=== PATIENT | female | born 1965 | race Caucasian/White ===

== ENCOUNTER 2019-07-15 15:25 | Emergency (ER) | payer BC, OTHER ==
[~2019-07-15] VITALS: Ht 170.2 cm; Wt 96.5 kg
[~2019-07-15 15:25] MED LIST: ASCO500 PO; ASPI81CH PO; ASPI81EC PO; ATOR20 PO; ATOR40TA PO; BUPR100 PO; CARV6.25 PO; CEPH500 PO; CITA20 PO; Carvedilol12.5 MG PO; DULO60 PO; FISH1000 PO; GLUCHON PO; HUMALOG KW200 UNIT/1 SC; HYDCHL25 PO; Humalog Mi100 UNIT/4 SC; IBUP800 PO; INDO50 PO; INSDET100 SQ; INSLI100I SUBQ; INSLIS75I; INSLIS75I SC; INSULANI SC; INSULANPEN SC; IRBE150 PO; Lasix20 MG PO; METF500 PO; METFORMIN HCL500 M1 PO; METO10 PO; MULVITMIND PO; OMEP40CA12 PO; OXYACE5T PO; Omeprazole20 M1 PO; POTCHL20ER PO; SULTRIDS PO; Zofran4 MG PO
[2019-07-15 16:06] LABS: BASOPHILS ABSOLUTE AUTO 0.09 K/mm3 (0.00-0.23); BASOPHILS PERCENT AUTO 1 % (0-2); EOSINOPHILS ABSOLUTE AUTO 0.12 K/mm3 (0.00-0.68); EOSINOPHILS PERCENT AUTO 1 % (0-6); Hematocrit 38.8 % (33.0-51.0); Hemoglobin 12.5 g/dL (11.5-16.0); IMMATURE GRAN ABSOLUTE AUTO 0.11 K/mm3 (0.00-0.10); IMMATURE GRAN PERCENT AUTO 1 % (0-1); LYMPHOCYTES ABSOLUTE AUTO 3.67 K/mm3 (0.84-5.20); LYMPHOCYTES PERCENT AUTO 20 % (21-46); MONOCYTES ABSOLUTE AUTO 1.61 K/mm3 (0.16-1.47); MONOCYTES PERCENT AUTO 9 % (4-13); Mean Corpuscular HGB 29.6 pg (26.0-34.0); Mean Corpuscular HGB Conc 32.2 g/dL (31.5-36.5); Mean Corpuscular Volume 92 fL (80-100); Mean Platelet Volume 9.9 fL (9.1-12.4); NEUTROPHILS PERCENT AUTO 70 % (41-73); Platelet Count 549 K/mm3 (150-400); RDW Coefficient Variation 13.8 % (11.7-14.2); RDW Standard Deviation 46.2 fL (35.1-46.3); Red Blood Cell Count 4.23 M/mm3 (3.80-5.20)
[2019-07-15 16:17] LABS: Source, Urine Clean Catch
[2019-07-15 16:22] LABS: Alanine Aminotransfer (ALT/SGP 28 U/L (12-78); Albumin/Globulin Ratio 0.6 (0.8-1.8); Alk Phos 119 U/L (50-136); Anion Gap 4 mmol/L (6-16); Aspartate Aminotrans (AST/SGOT 42 U/L (12-37); Bilirubin, Total 0.5 mg/dL (0.1-1.0); Blood Urea Nitrogen 12 mg/dL (8-24); Bun/Creatinine Ratio 22.8 (12.0-20.0); CO2, Blood 28 mmol/L (21-32); Calcium, Blood 9.3 mg/dL (8.5-10.1); Chloride, Blood 100 mmol/L (98-108); Creatinine, Blood 0.53 mg/dL (0.40-1.00); Globulin, Blood 4.9 g/dL (2.2-4.0); Glomerular Filtration Rate >60 (60-); Glucose, Blood 244 mg/dL (70-99); Potassium, Blood 4.9 mmol/L (3.5-5.5); Sodium, Blood 132 mmol/L (136-145); Total Protein, Blood 7.9 g/dL (6.4-8.2)
[2019-07-15 16:27] LABS: Bilirubin, Urine Neg (Neg); Blood, Urine 3+ (Neg); Glucose Qualitative, Urine 3+ (Neg); Ketones, Urine Neg (Neg); Leukocyte Esterase, Urine 3+ (Neg); Nitrite, Urine Pos (Neg); Protein, Urine 2+ (Neg); Urobilinogen, Urine NORM (Normal); pH, Urine 6.5 (5.0-8.0)
[2019-07-15 16:28] LABS: Appearance, Urine Hazy (Clear); Color, Urine Yellow (P-Yellow)
[2019-07-15 16:44] LABS: Bacteria Many /hpf; Squamous Epithelial Cells Many /hpf (Few); White Blood Cells, Urine 25-50 /hpf (0-5)
[2019-07-15] MEDS ORDERED: Amoxicillin500 MG PO (20:56)
[2019-07-15] MEDS ORDERED: IBUP400 PO (20:56)
== END 2019-07-15 21:46 | disposition home or self-care (01) ==
LOC: ER 15:25
PROVIDERS: Physician Assistant
DX: M54.5 Low back pain (principal); E11.9 Type 2 diabetes mellitus without complications; F32.9 Major depressive disorder, single episode, unspecified; F41.9 Anxiety disorder, unspecified; E78.5 Hyperlipidemia, unspecified; I10 Essential (primary) hypertension; N12 Tubulo-interstitial nephritis, not specified as acute or chronic; Z87.891 Personal history of nicotine dependence; Z88.8 Allergy status to other drugs, medicaments and biological substances; Z88.5 Allergy status to narcotic agent; Z79.899 Other long term (current) drug therapy; Z79.4 Long term (current) use of insulin
CPT/HCPCS: 36415; 71046; 74177; 80053; 81001; 85025; 87077; 87086; 87186; 96374-59; 96375; 96376; 99284-25; J0696; J1170; J2405; Q9967

== ENCOUNTER → 2019-09-06 | Outpatient (CLI) | payer BC, OTHER ==
[~2019-09-06] MED LIST changes: +Amoxicillin500 MG PO; +IBUP400 PO
== END ==
LOC: EFM RAD 15:27
DX: M54.5 Low back pain (principal); M79.604 Pain in right leg; M79.605 Pain in left leg; M25.551 Pain in right hip; M47.816 Spondylosis without myelopathy or radiculopathy, lumbar region; M47.898 Other spondylosis, sacral and sacrococcygeal region; I70.8 Atherosclerosis of other arteries; M25.851 Other specified joint disorders, right hip
CPT/HCPCS: 72100; 73502

== ENCOUNTER → 2020-03-10 | Outpatient (CLI) | payer BC, OTHER ==
[2020-03-10 16:52] LABS: BASOPHILS ABSOLUTE AUTO 0.12 K/mm3 (0.00-0.23); BASOPHILS PERCENT AUTO 1 % (0-2); EOSINOPHILS ABSOLUTE AUTO 0.34 K/mm3 (0.00-0.68); EOSINOPHILS PERCENT AUTO 2 % (0-6); Hematocrit 46.5 % (33.0-51.0); Hemoglobin 15.8 g/dL (11.5-16.0); IMMATURE GRAN ABSOLUTE AUTO 0.05 K/mm3 (0.00-0.10); IMMATURE GRAN PERCENT AUTO 0 % (0-1); LYMPHOCYTES ABSOLUTE AUTO 4.65 K/mm3 (0.84-5.20); LYMPHOCYTES PERCENT AUTO 30 % (21-46); MONOCYTES ABSOLUTE AUTO 0.87 K/mm3 (0.16-1.47); MONOCYTES PERCENT AUTO 6 % (4-13); Mean Corpuscular HGB 30.6 pg (26.0-34.0); Mean Corpuscular Volume 90 fL (80-100); Mean Platelet Volume 10.9 fL (9.1-12.4); NEUTROPHILS ABSOLUTE AUTO 9.61 K/mm3 (1.96-9.15); NEUTROPHILS PERCENT AUTO 61 % (41-73); Platelet Count 485 K/mm3 (150-400); RDW Coefficient Variation 13.1 % (11.7-14.2); RDW Standard Deviation 43.8 fL (35.1-46.3); Red Blood Cell Count 5.17 M/mm3 (3.80-5.20); White Blood Cell Count 15.64 K/mm3 (4.00-11.30)
[2020-03-10 17:10] LABS: Alanine Aminotransfer (ALT/SGP 41 U/L (12-78); Albumin, Blood 4.2 g/dL (3.4-5.0); Albumin/Globulin Ratio 0.9 (0.8-1.8); Alk Phos 106 U/L (40-126); Anion Gap 12 mmol/L (6-16); Aspartate Aminotrans (AST/SGOT 17 U/L (12-37); Bilirubin, Total 0.3 mg/dL (0.1-1.0); Blood Urea Nitrogen 20 mg/dL (8-24); Bun/Creatinine Ratio 19.2 (12.0-20.0); CHOL/HDL RATIO 6.5; CO2, Blood 26 mmol/L (21-32); Calcium, Blood 9.9 mg/dL (8.5-10.1); Chloride, Blood 97 mmol/L (98-108); Cholesterol 280 mg/dL (50-200); Creatinine, Blood 1.04 mg/dL (0.40-1.00); Globulin, Blood 4.5 g/dL (2.2-4.0); Glomerular Filtration Rate 55 (60-); Glucose, Blood 322 mg/dL (70-99); HDL Cholesterol 43 mg/dL (>39); LDL/HDL RATIO 4.6; Low Density Lipoprotein Chol 197 mg/dL (<110); Potassium, Blood 4.2 mmol/L (3.5-5.5); Sodium, Blood 135 mmol/L (136-145); Thyroid Stimulating Hormone 0.876 uIU/mL (0.360-4.800); Total Protein, Blood 8.7 g/dL (6.4-8.2); Triglycerides 202 mg/dL (30-160); Very Low Density Lipoprot Chol 40 mg/dL (6-32)
== END | disposition home or self-care (01) ==
LOC: LAB EV 16:46 → LAB SHORT 16:46
PROVIDERS: General Practice
DX: E11.9 Type 2 diabetes mellitus without complications (principal); I10 Essential (primary) hypertension
CPT/HCPCS: 80053; 80061; 83036; 84439; 84443; 85025

== ENCOUNTER 2021-04-16 21:11 | Inpatient (IN) | payer BC, OTHER ==
[~2021-04-16] VITALS: Ht 167.6 cm; Wt 107.0 kg
[2021-04-17 00:33] LABS: BASOPHILS ABSOLUTE AUTO 0.12 K/mm3 (0.00-0.23); BASOPHILS PERCENT AUTO 1 % (0-2); EOSINOPHILS ABSOLUTE AUTO 0.18 K/mm3 (0.00-0.68); EOSINOPHILS PERCENT AUTO 1 % (0-6); Hematocrit 43.4 % (33.0-51.0); Hemoglobin 14.9 g/dL (11.5-16.0); IMMATURE GRAN PERCENT AUTO 1 % (0-1); LYMPHOCYTES ABSOLUTE AUTO 1.99 K/mm3 (0.84-5.20); LYMPHOCYTES PERCENT AUTO 15 % (21-46); MONOCYTES ABSOLUTE AUTO 0.87 K/mm3 (0.16-1.47); MONOCYTES PERCENT AUTO 7 % (4-13); Mean Corpuscular HGB 30.4 pg (26.0-34.0); Mean Corpuscular HGB Conc 34.3 g/dL (31.5-36.5); Mean Corpuscular Volume 89 fL (80-100); Mean Platelet Volume 12.2 fL (9.1-12.4); NEUTROPHILS ABSOLUTE AUTO 9.71 K/mm3 (1.96-9.15); NEUTROPHILS PERCENT AUTO 75 % (41-73); Platelet Count 325 K/mm3 (150-400); RDW Coefficient Variation 12.9 % (11.7-14.2); White Blood Cell Count 12.97 K/mm3 (4.00-11.30)
[2021-04-17 00:36] LABS: Alanine Aminotransfer (ALT/SGP 50 U/L (12-78); Albumin, Blood 3.1 g/dL (3.4-5.0); Albumin/Globulin Ratio 0.8 (0.8-1.8); Alk Phos 108 U/L (50-136); Anion Gap 7 mmol/L (6-16); Aspartate Aminotrans (AST/SGOT 28 U/L (12-37); Bilirubin, Total 0.2 mg/dL (0.1-1.0); Blood Urea Nitrogen 16 mg/dL (8-24); Bun/Creatinine Ratio 22.2 (12.0-20.0); CO2, Blood 23 mmol/L (21-32); Calcium, Blood 8.7 mg/dL (8.5-10.1); Chloride, Blood 96 mmol/L (98-108); Creatinine, Blood 0.72 mg/dL (0.40-1.00); Globulin, Blood 3.8 g/dL (2.2-4.0); Glomerular Filtration Rate >60 (60-); Glucose, Blood 462 mg/dL (70-99); Potassium, Blood 4.7 mmol/L (3.5-5.5); Sodium, Blood 126 mmol/L (136-145); Total Protein, Blood 6.9 g/dL (6.4-8.2)
[2021-04-17 02:12] LABS: SARS-Cov-2 (COVID-19) PCR, MMC NEGATIVE (NEGATIVE)
[2021-04-17] MEDS ORDERED: ASPI81CH PO (02:46)
[2021-04-17] MEDS ORDERED: Atacand8 MG PO (02:47)
[2021-04-17] MEDS ORDERED: Abilify2 MG PO (02:49)
--- NOTE | 2021-04-17 04:16 | NUR ---
SHIFT SUMMARY NEW ADMIT THIS AM. AAOX4. NPO. DISCOMFORT DECREASED WITH 1MG IV DILAUDID. NO NAUSEA/EMESIS. RIGHT HIP FX, DENIES N/T ALL EXTREMITIES, MOVES TOES WELL BLE, MOVES TOES WELL. 2L VIA NC POST PAIN MEDS, ENCOURAGE DEEP BREATHING + INCENTIVE SPIROMETRY USE. ORIENTED TO ROOM + CALL LIGHT USE. SIGNIFICANT OTHER AT BEDSIDE. MEDICATIONS VERIFIED WITH SON ON PHONE. PT RESTING WELL THIS AM WITH CALL LIGHT IN REACH.
[2021-04-17 05:07] LABS: Source, Urine Catheter
[2021-04-17 05:09] LABS: Bilirubin, Urine Neg (Neg); Blood, Urine 1+ (Neg); Glucose Qualitative, Urine 4+ (Neg); Ketones, Urine 3+ (Neg); Leukocyte Esterase, Urine Neg (Neg); Nitrite, Urine Pos (Neg); Protein, Urine Neg (Neg); Urobilinogen, Urine NORM (Normal)
[2021-04-17 05:16] LABS: Appearance, Urine Clear (Clear); Bacteria Many /hpf; Color, Urine Yellow (P-Yellow); Red Blood Cells, Urine 0-2 /hpf (0-2); Squamous Epithelial Cells Few /hpf (Few)
[2021-04-17 06:02] LABS: BASOPHILS ABSOLUTE AUTO 0.09 K/mm3 (0.00-0.23); BASOPHILS PERCENT AUTO 1 % (0-2); EOSINOPHILS ABSOLUTE AUTO 0.02 K/mm3 (0.00-0.68); EOSINOPHILS PERCENT AUTO 0 % (0-6); Hematocrit 43.1 % (33.0-51.0); Hemoglobin 14.6 g/dL (11.5-16.0); IMMATURE GRAN ABSOLUTE AUTO 0.06 K/mm3 (0.00-0.10); IMMATURE GRAN PERCENT AUTO 0 % (0-1); LYMPHOCYTES ABSOLUTE AUTO 1.78 K/mm3 (0.84-5.20); LYMPHOCYTES PERCENT AUTO 11 % (21-46); MONOCYTES PERCENT AUTO 4 % (4-13); Mean Corpuscular HGB 30.2 pg (26.0-34.0); Mean Corpuscular HGB Conc 33.9 g/dL (31.5-36.5); Mean Corpuscular Volume 89 fL (80-100); Mean Platelet Volume 10.9 fL (9.1-12.4); NEUTROPHILS PERCENT AUTO 85 % (41-73); Platelet Count 321 K/mm3 (150-400); RDW Coefficient Variation 12.7 % (11.7-14.2); RDW Standard Deviation 41.9 fL (35.1-46.3); Red Blood Cell Count 4.83 M/mm3 (3.80-5.20); White Blood Cell Count 16.45 K/mm3 (4.00-11.30)
[2021-04-17 06:17] LABS: Anion Gap 7 mmol/L (6-16); Blood Urea Nitrogen 15 mg/dL (8-24); Bun/Creatinine Ratio 22.7 (12.0-20.0); CO2, Blood 24 mmol/L (21-32); Calcium, Blood 8.7 mg/dL (8.5-10.1); Chloride, Blood 100 mmol/L (98-108); Creatinine, Blood 0.66 mg/dL (0.40-1.00); Glomerular Filtration Rate >60 (60-); Glucose, Blood 425 mg/dL (70-99); Potassium, Blood 4.7 mmol/L (3.5-5.5); Sodium, Blood 131 mmol/L (136-145)
[2021-04-17 06:39] LABS: International Normalized Ratio 0.9; Prothrombin Time Results 9.8 Sec (9.7-11.5)
--- NOTE | 2021-04-17 09:25 | NUR ---
PT SAYS SHE DOESNT WANT TO TALK ABOUT HER DIABETES AND BECAME TEARFUL. PT TELLS ME LIVES WITH FAMILY MEMBERS WHO DO NOT COOK AND THAT HER DIET CONSISTS OF CANDY AND FAST FOOD. PT TELLS ME THAT SOMETIMES HER FAMILY DOES NOT APPLICATIONS CONSULTANT PRESCRIPTIONS THAT HAVE BEEN REFILLED AND SHE MAY GO A WEEK OR MORE WITHOUT HER INSULIN AND OTHER MEDS. DISCUSSED HAVING DIETARY CONSULT WITH [facility] AND HER FAMILY AND PT DECLINES, STATES IT DOESNT MATTER.
--- NOTE | 2021-04-18 05:12 | NUR ---
PATIENT A/OX4, FORGETFUL AT TIMES. VSS ON 2L O2. PAIN MANAGED WELL W/ IV DILAUDID Q3HR. PT REFUSING FREQUENT REPOSTIONING. W/ ENCOURAGEMENT REPOSIIONED 2X. CULLEN IN PLACE W/ GOOD OUTPUT. CONTINOUS IV FLUIDS INFUSING. NPO AT MIDNIGHT FOR POSSIBLE PROCEDURE. USING CALL LIGHT TO MAKE NEEDS KNOWN.
[2021-04-18 06:50] LABS: Alanine Aminotransfer (ALT/SGP 167 U/L (12-78); Albumin, Blood 2.7 g/dL (3.4-5.0); Albumin/Globulin Ratio 0.8 (0.8-1.8); Alk Phos 191 U/L (50-136); Anion Gap 7 mmol/L (6-16); Aspartate Aminotrans (AST/SGOT 145 U/L (12-37); Bilirubin, Total 0.4 mg/dL (0.1-1.0); Blood Urea Nitrogen 14 mg/dL (8-24); Bun/Creatinine Ratio 19.3 (12.0-20.0); CHOL/HDL RATIO 3.4; CO2, Blood 26 mmol/L (21-32); Calcium, Blood 8.3 mg/dL (8.5-10.1); Chloride, Blood 103 mmol/L (98-108); Cholesterol 116 mg/dL (50-200); Creatinine, Blood 0.72 mg/dL (0.40-1.00); Globulin, Blood 3.5 g/dL (2.2-4.0); Glomerular Filtration Rate >60 (60-); Glucose, Blood 262 mg/dL (70-99); HDL Cholesterol 34 mg/dL (>39); LDL/HDL RATIO 1.6; Low Density Lipoprotein Chol 55 mg/dL (0-110); Potassium, Blood 4.2 mmol/L (3.5-5.5); Sodium, Blood 136 mmol/L (136-145); Total Protein, Blood 6.2 g/dL (6.4-8.2); Triglycerides 134 mg/dL (30-160); Very Low Density Lipoprot Chol 26 mg/dL (6-32)
--- NOTE | 2021-04-18 16:02 | NUR ---
TO DAY SURGERY PER BED
--- NOTE | 2021-04-18 16:15 | NUR ---
ARRIVED INTO [facility] VSS ADMISSION STARTED TO UNIT.
[2021-04-19 05:23] LABS: Hematocrit 36.8 % (33.0-51.0); Hemoglobin 12.3 g/dL (11.5-16.0); Mean Corpuscular HGB 30.1 pg (26.0-34.0); Mean Corpuscular HGB Conc 33.4 g/dL (31.5-36.5); Mean Corpuscular Volume 90 fL (80-100); Mean Platelet Volume 11.5 fL (9.1-12.4); Platelet Count 270 K/mm3 (150-400); RDW Coefficient Variation 12.9 % (11.7-14.2); RDW Standard Deviation 42.8 fL (35.1-46.3); Red Blood Cell Count 4.09 M/mm3 (3.80-5.20); White Blood Cell Count 15.08 K/mm3 (4.00-11.30)
[2021-04-19 05:52] LABS: Alanine Aminotransfer (ALT/SGP 143 U/L (12-78); Albumin, Blood 2.5 g/dL (3.4-5.0); Albumin/Globulin Ratio 0.7 (0.8-1.8); Alk Phos 227 U/L (50-136); Anion Gap 11 mmol/L (6-16); Aspartate Aminotrans (AST/SGOT 63 U/L (12-37); Bilirubin, Total 0.5 mg/dL (0.1-1.0); Blood Urea Nitrogen 15 mg/dL (8-24); Bun/Creatinine Ratio 24.1 (12.0-20.0); CO2, Blood 22 mmol/L (21-32); Calcium, Blood 8.4 mg/dL (8.5-10.1); Chloride, Blood 101 mmol/L (98-108); Creatinine, Blood 0.62 mg/dL (0.40-1.00); Globulin, Blood 3.6 g/dL (2.2-4.0); Glomerular Filtration Rate >60 (60-); Glucose, Blood 313 mg/dL (70-99); Potassium, Blood 4.4 mmol/L (3.5-5.5); Sodium, Blood 134 mmol/L (136-145); Total Protein, Blood 6.1 g/dL (6.4-8.2)
--- NOTE | 2021-04-19 07:45 | NUR ---
SHIFT SUMMARY POD 1 R GAMMA NAIL, A/O X4, VSS, TOLERATING PO , VOIDING VIA CULLEN, PAIN IMPROVING BUT STILL NEEDING SUPPLEMENTAL IV NARCOTICS, PT ANXIOUS ABOUT AMBULATING POST OP, ENCOURAGED TO WORK W/ PT AND EDUCATED ON IMPORTANCE OF EARLY AMBULATION AND RECOVERY. IV ABX DELAYED DUE TO DIFFICULTIES ESTABLISHING ACCESS. NO OTHER ACUTE EVENTS THIS SHIFT. CALL LIGHT IN REACH, REPORT GIVEN TO DAY RN.
--- NOTE | 2021-04-19 18:11 | NUR ---
SUMMARY PT VERY PAINFUL W/MOVEMENT. MEDICATED PER ORDERS T/O SHIFT FOR PAIN. PT FEARFUL AND ANXIOUS AT TIMES. FEARFUL OF FALLING. HAD DIFFICULTY STANDING TO PIVOT BACK TO BED AFTER GETTING UP TO BSC. AFTER REC'G DINNER, PT YELLED OUT FOR HELP. FELT LIKE HAD FOOD CAUGHT IN THROAT. WAS ABLE TO BREATHE W/O DIFFICULTY BUT FELT FOOD CAUGHT. AFTER SPITTING UP, WAS ABLE TO TAKE SEVERAL SIPS OF WATER AND CLEAR THROAT. CALL LIGHT IN REACH.
--- NOTE | 2021-04-20 07:32 | NUR ---
SHIFT SUMMARY POD2 R GAMMA NAIL, A/O X4, VSS, PAIN MANAGED PER EMAR, PT C/O MUSCLE SPASMS IN RLE, DISCUSSED POSSIBLY GETTING ORDER FOR FLEXERIL, VALIUM ADMINISTERED FOR SPASMS AND WILL CHECK FOR EFFECTIVENESS. RETAINING URINE, BLADDER SCAN AND STRAIGHT CATH PER ORDER, PT RETAINING AGAIN AT RESCAN, INFORMATION PASSED ON TO DAY RN TO STRAIGHT CATH. NO OTHER ACUTE EVENTS THIS SHIFT. CALL LIGHT IN REACH, REPORT GIVEN TO DAY RN.
[2021-04-20 09:53] LABS: Appearance, Urine Hazy (Clear); Bilirubin, Urine Neg (Neg); Blood, Urine Neg (Neg); Color, Urine Yellow (P-Yellow); Glucose Qualitative, Urine 4+ (Neg); Ketones, Urine 3+ (Neg); Leukocyte Esterase, Urine 1+ (Neg); Nitrite, Urine Neg (Neg); Protein, Urine 1+ (Neg); Specific Gravity, Urine 1.015 (1.003-1.022); Urobilinogen, Urine NORM (Normal)
[2021-04-20 09:56] LABS: Bacteria Few /hpf; Red Blood Cells, Urine 0-2 /hpf (0-2); Squamous Epithelial Cells Few /hpf (Few); Yeast/Fungi Urine Many /hpf
--- NOTE | 2021-04-20 17:02 | NUR ---
SUMMARY PT UNABLE TO VOID. OBTAINED ORDER FOR CULLEN CATH. DRAINING HAZY YIP YELLOW URINE. SENT UA PER PROTOCOL WHEN PLACED. PT APPEARED TO HAVE VAGINAL YEAST; ORDER OBTAINED AND ADMINISTERED OT DOSE OF PO DIFLUCAN. PT SAT UP ON SIDE OF BED THIS AM AND STOOD AT BEDSIDE. HAVE BEEN REPOSITIONING T/O SHIFT SINCE. PAIN CONTROL IMPROVING; OBTAINED ORDERS TO INCREASE PERCOCET TO 1-2 TAB OF 7.5/325 MG Q4 HRS PRN. MEDICATED ONCE DURING SHIFT W/VALIUM. PT'S CBG IMPROVED T/O SHIFT; 121 THIS EVENING. CALL LIGHT IN REACH.
--- NOTE | 2021-04-21 06:36 | NUR ---
SUMMARY PT HAS BEEN RESTING IN BED THROUGH THE NIGHT, SHE DID NOT WANT TO GET UP TO THE BEDSIDE BUT SHE WAS WILLING TO DO BED EXERCISES. PAIN MANAGED WITH PO PERCOCET, VALIUM FOR MUSCLE SPASMS. ÁNGEL WEAVER C/D/I, CIRC WNL. CLEAR YELLOW URINE NOTED IN CULLEN. INCENTIVE SPIROMETER EDU PROVIDED, FREQUENT USE ENC. CALL LIGHT IN REACH
--- NOTE | 2021-04-21 16:59 | NUR ---
04/21/21 1659 Greetl Rod VERIFICATIONS: EDIT CHART.
--- NOTE | 2021-04-21 18:03 | NUR ---
SHIFT SUMMARY PT IS STARTING TO IMPROVE & MUSCLE SPASMS DECREASING. TOLERATED STANDING AT BEDSIDE FEW TIMES TODAY. STRUGGLES WITH CONSTIPATION, CHRONICALLY. BOWEL CARE STARTED & PT BEGINNING TO PASS GAS THIS EVENING.
--- NOTE | 2021-04-21 18:18 | NUR ---
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
--- NOTE | 2021-04-21 18:43 | NUR ---
UNABLE TO VOID BLADDER SCAN 499MLS. I/O CATH COMPLETED.
--- NOTE | 2021-04-22 03:56 | NUR ---
SHIFT SUMMARY: POD 4 RIGHT GAMMA NAILING PATIENT IS ALERT AND ORIENTED X4. SHE HAS BEEN AWAKE MAJORITY OF THE SHIFT DUE TO MUSCLE SPASMS. PATIENT REPORTS THAT THE VALIUM PO HELPS WITH THESE MUSCLE SPASMS. PATIENT IS ALSO TAKING 2 PERCOCETS FOR PAIN THAT HELP MANAGED. THE 2 AQUACELS ARE INTACT WITH MINOR OLD BLOOD SPOTS. PATIENT IS ABLE TO WIGGLE FINGERS AND TOES. SHE IS OFTEN DOING EXERCISES IN BED AND WAS ABLE TO AMBULATE TO THE COMMODE. PATIENT REPORTS PASSING SOME GAS WHEN TRYING TO GET UP TO THE COMMODE. PATIENT IS HAVING TO BE STRAIGHT CATHED SINCE SHE IS HAVING RETENTION WELL "NOT HAVING A FEELING TO GO/FEELING PRESSURE". SHE IS TOLERATING PO INTAKE. CALLS APPROPRIATELY. CALL LIGHT WITHIN REACH. THE PLAN IS TO CONTINUE TO WORK WITH THERAPY AND CONTINUE TO MANAGE PAIN. SHE WILL EVENTUALLY END UP AT A SNF FOR DISCHARGE.
[2021-04-22 14:32] LABS: SARS-Cov-2 (COVID-19) PCR, MMC NEGATIVE (NEGATIVE)
--- NOTE | 2021-04-22 16:06 | NUR ---
DISCHARGE TO [facility] VIA W/C. x 2 SPONTANIOUS VOIDS TODAY. PAIN REASONABLY MANAGED. RODNEY DSOUZA x 2 SENT WELL HARD SCRIPTS. REPORT CALLED TO SNF.
== END 2021-04-22 16:06 | DRG 482 ==
LOC: ER 21:11 → SURS 04-17 00:55
PROVIDERS: Emergency Medicine; Internal Medicine; Orthopaedic Surgery; Physician Assistant Surgical; ADMIT Internal Medicine
PROC: 0QS636Z Reposition Right Upper Femur with Intramedullary Internal Fixation Device, Percutaneous Approach (ICD-10-PCS; principal; 2021-04-18 17:45)
DX: S72.141A Displaced intertrochanteric fracture of right femur, initial encounter for closed fracture (principal); W18.31XA Fall on same level due to stepping on an object, initial encounter; F32.9 Major depressive disorder, single episode, unspecified; K21.9 Gastro-esophageal reflux disease without esophagitis; E78.5 Hyperlipidemia, unspecified; Z20.822 Contact with and (suspected) exposure to COVID-19; E66.01 Morbid (severe) obesity due to excess calories; E28.2 Polycystic ovarian syndrome; F17.210 Nicotine dependence, cigarettes, uncomplicated; E78.00 Pure hypercholesterolemia, unspecified; G89.29 Other chronic pain; B37.3 Candidiasis of vulva and vagina; E11.42 Type 2 diabetes mellitus with diabetic polyneuropathy; I25.6 Silent myocardial ischemia; F41.9 Anxiety disorder, unspecified; I25.10 Atherosclerotic heart disease of native coronary artery without angina pectoris; J45.909 Unspecified asthma, uncomplicated; I12.9 Hypertensive chronic kidney disease with stage 1 through stage 4 chronic kidney disease, or unspecified chronic kidney disease; N18.9 Chronic kidney disease, unspecified; E11.22 Type 2 diabetes mellitus with diabetic chronic kidney disease; E11.65 Type 2 diabetes mellitus with hyperglycemia; Z90.89 Acquired absence of other organs; Z98.890 Other specified postprocedural states; Z90.49 Acquired absence of other specified parts of digestive tract; Z98.51 Tubal ligation status; Z68.38 Body mass index [BMI] 38.0-38.9, adult; Y92.833 Campsite as the place of occurrence of the external cause; Y93.6A Activity, physical games generally associated with school recess, summer camp and children; Z88.8 Allergy status to other drugs, medicaments and biological substances; Z79.4 Long term (current) use of insulin; Z79.899 Other long term (current) drug therapy; Z88.5 Allergy status to narcotic agent; Z79.82 Long term (current) use of aspirin; Z91.5 Personal history of self-harm; I25.2 Old myocardial infarction
CPT/HCPCS: 36415; 51701; 71045; 72192; 73502; 80048; 80053; 80061; 81001; 82947; 83036; 85025; 85027; 85610; 87077; 87086; 87186; 93005; 93010; 93306; 94640; 94760; 96374-59; 96375-59; 97110; 97116; 97162; 97530; 99285-25; A9270; C1713; C1751; J0690; J1100; J1170; J1815; J2250; J2370; J2405; J2704; J3010; J7030; U0004

== ENCOUNTER 2021-05-05 18:32 | Emergency (ER) | payer BC, OTHER ==
[~2021-05-05] VITALS: Ht 167.6 cm; Wt 108.9 kg
[~2021-05-05 18:32] MED LIST changes: +Abilify2 MG PO; +Atacand8 MG PO
== END 2021-05-05 19:42 | disposition home or self-care (01) ==
LOC: ER 18:32
DX: Z48.01 Encounter for change or removal of surgical wound dressing (principal); L76.32 Postprocedural hematoma of skin and subcutaneous tissue following other procedure; Y83.8 Other surgical procedures as the cause of abnormal reaction of the patient, or of later complication, without mention of misadventure at the time of the procedure
CPT/HCPCS: 99282

== ENCOUNTER → 2022-06-19 | Outpatient (CLI) | payer OTHER ==
[2022-06-19 13:59] LABS: Alanine Aminotransfer (ALT/SGP 17 U/L (12-78); Albumin, Blood 2.8 g/dL (3.4-5.0); Albumin/Globulin Ratio 0.8 (0.8-1.8); Alk Phos 136 U/L (50-136); Anion Gap 8 mmol/L (6-16); Aspartate Aminotrans (AST/SGOT 6 U/L (12-37); Bilirubin, Total 0.3 mg/dL (0.1-1.0); Blood Urea Nitrogen 21 mg/dL (8-24); Bun/Creatinine Ratio 29.7 (12.0-20.0); CHOL/HDL RATIO 3.6; CO2, Blood 25 mmol/L (21-32); Calcium, Blood 8.8 mg/dL (8.5-10.1); Chloride, Blood 104 mmol/L (98-108); Cholesterol 131 mg/dL (50-200); Creatinine, Blood 0.71 mg/dL (0.40-1.00); Globulin, Blood 3.5 g/dL (2.2-4.0); Glomerular Filtration Rate 98 (60-); Glucose, Blood 122 mg/dL (70-99); HDL Cholesterol 36 mg/dL (>39); LDL/HDL RATIO 1.9; Low Density Lipoprotein Chol 69 mg/dL (0-110); Potassium, Blood 4.4 mmol/L (3.5-5.5); Sodium, Blood 137 mmol/L (136-145); Total Protein, Blood 6.3 g/dL (6.4-8.2); Triglycerides 129 mg/dL (30-160); Very Low Density Lipoprot Chol 25 mg/dL (6-32)
[2022-06-19 14:15] LABS: BASOPHILS ABSOLUTE AUTO 0.09 K/mm3 (0.00-0.23); BASOPHILS PERCENT AUTO 1 % (0-2); EOSINOPHILS ABSOLUTE AUTO 0.39 K/mm3 (0.00-0.68); EOSINOPHILS PERCENT AUTO 3 % (0-6); Hematocrit 40.7 % (33.0-51.0); Hemoglobin 13.3 g/dL (11.5-16.0); IMMATURE GRAN ABSOLUTE AUTO 0.06 K/mm3 (0.00-0.10); IMMATURE GRAN PERCENT AUTO 0 % (0-1); LYMPHOCYTES ABSOLUTE AUTO 2.82 K/mm3 (0.84-5.20); LYMPHOCYTES PERCENT AUTO 20 % (21-46); MONOCYTES ABSOLUTE AUTO 0.91 K/mm3 (0.16-1.47); MONOCYTES PERCENT AUTO 6 % (4-13); Mean Corpuscular HGB Conc 32.7 g/dL (31.5-36.5); Mean Corpuscular Volume 89 fL (80-100); Mean Platelet Volume 11.6 fL (9.1-12.4); NEUTROPHILS ABSOLUTE AUTO 10.19 K/mm3 (1.96-9.15); NEUTROPHILS PERCENT AUTO 71 % (41-73); Platelet Count 385 K/mm3 (150-400); RDW Coefficient Variation 15.4 % (11.7-14.2); RDW Standard Deviation 49.9 fL (35.1-46.3); Red Blood Cell Count 4.58 M/mm3 (3.80-5.20); White Blood Cell Count 14.46 K/mm3 (4.00-11.30)
== END | disposition home or self-care (01) ==
LOC: LAB HH 11:01
PROVIDERS: Family Medicine
DX: I10 Essential (primary) hypertension (principal); E11.42 Type 2 diabetes mellitus with diabetic polyneuropathy; E11.65 Type 2 diabetes mellitus with hyperglycemia
CPT/HCPCS: 80053; 80061; 83036; 84443; 85025

== ENCOUNTER 2022-07-10 16:16 | Emergency (ER) | payer OTHER ==
[~2022-07-10] VITALS: Ht 167.6 cm; Wt 117.9 kg
[2022-07-10 19:38] LABS: BASOPHILS ABSOLUTE AUTO 0.08 K/mm3 (0.00-0.23); BASOPHILS PERCENT AUTO 1 % (0-2); EOSINOPHILS ABSOLUTE AUTO 0.19 K/mm3 (0.00-0.68); EOSINOPHILS PERCENT AUTO 2 % (0-6); Hematocrit 38.4 % (33.0-51.0); Hemoglobin 12.7 g/dL (11.5-16.0); IMMATURE GRAN ABSOLUTE AUTO 0.04 K/mm3 (0.00-0.10); IMMATURE GRAN PERCENT AUTO 0 % (0-1); LYMPHOCYTES ABSOLUTE AUTO 2.68 K/mm3 (0.84-5.20); LYMPHOCYTES PERCENT AUTO 21 % (21-46); MONOCYTES ABSOLUTE AUTO 0.72 K/mm3 (0.16-1.47); MONOCYTES PERCENT AUTO 6 % (4-13); Mean Corpuscular HGB 29.5 pg (26.0-34.0); Mean Corpuscular HGB Conc 33.1 g/dL (31.5-36.5); Mean Corpuscular Volume 89 fL (80-100); Mean Platelet Volume 10.9 fL (9.1-12.4); NEUTROPHILS ABSOLUTE AUTO 8.81 K/mm3 (1.96-9.15); NEUTROPHILS PERCENT AUTO 70 % (41-73); Platelet Count 360 K/mm3 (150-400); RDW Coefficient Variation 15.2 % (11.7-14.2); RDW Standard Deviation 49.6 fL (35.1-46.3); White Blood Cell Count 12.52 K/mm3 (4.00-11.30)
[2022-07-10 19:56] LABS: Albumin, Blood 2.6 g/dL (3.4-5.0); Albumin/Globulin Ratio 0.6 (0.8-1.8); Bilirubin, Total 0.5 mg/dL (0.1-1.0); Bun/Creatinine Ratio 18.7 (12.0-20.0); Calcium, Blood 8.7 mg/dL (8.5-10.1); Creatinine, Blood 0.59 mg/dL (0.40-1.00); Globulin, Blood 4.2 g/dL (2.2-4.0); Total Protein, Blood 6.8 g/dL (6.4-8.2)
[2022-07-10 20:06] LABS: Source, Urine Voided
[2022-07-10 20:22] LABS: Bilirubin, Urine Neg (Neg); Blood, Urine 4+ (Neg); Glucose Qualitative, Urine 4+ (Neg); Ketones, Urine 1+ (Neg); Leukocyte Esterase, Urine Neg (Neg); Nitrite, Urine Neg (Neg); Protein, Urine 2+ (Neg); Urobilinogen, Urine NORM (Normal)
[2022-07-10 20:40] LABS: Appearance, Urine Clear (Clear); Color, Urine Pale Yellow (P-Yellow)
[2022-07-10 20:41] LABS: Bacteria Few /hpf; Squamous Epithelial Cells Mod /hpf (Few); Transitional Epithelial Cells Few /hpf (0-Rare); White Blood Cells, Urine 0-2 /hpf (0-5)
== END 2022-07-10 23:40 | disposition left against medical advice (07) ==
LOC: ER 16:16
DX: R60.0 Localized edema (principal); G89.29 Other chronic pain; E11.65 Type 2 diabetes mellitus with hyperglycemia; I10 Essential (primary) hypertension; E78.5 Hyperlipidemia, unspecified; K21.9 Gastro-esophageal reflux disease without esophagitis; F17.210 Nicotine dependence, cigarettes, uncomplicated; Z88.5 Allergy status to narcotic agent; Z88.8 Allergy status to other drugs, medicaments and biological substances; Z79.4 Long term (current) use of insulin; Z79.82 Long term (current) use of aspirin; Z79.899 Other long term (current) drug therapy; Z53.21 Procedure and treatment not carried out due to patient leaving prior to being seen by health care provider; Z74.1 Need for assistance with personal care
CPT/HCPCS: 80053; 81001; 85025; 93971; A9270; J1815; J1885

== ENCOUNTER → 2022-09-24 | Outpatient (CLI) | payer OTHER ==
[2022-09-24 18:10] LABS: Albumin, Blood 2.8 g/dL (3.4-5.0); Albumin/Globulin Ratio 0.7 (0.8-1.8); Bilirubin, Total 0.2 mg/dL (0.1-1.0); Bun/Creatinine Ratio 28.9 (12.0-20.0); Calcium, Blood 8.9 mg/dL (8.5-10.1); Creatinine, Blood 0.69 mg/dL (0.40-1.00); Globulin, Blood 4.1 g/dL (2.2-4.0); Potassium, Blood 3.8 mmol/L (3.5-5.5); Total Protein, Blood 6.9 g/dL (6.4-8.2)
== END | disposition home or self-care (01) ==
LOC: LAB SHORT 15:45 → LAB HH 15:45
PROVIDERS: Family Medicine
DX: E11.65 Type 2 diabetes mellitus with hyperglycemia (principal); F41.8 Other specified anxiety disorders; E66.01 Morbid (severe) obesity due to excess calories; I10 Essential (primary) hypertension; Z79.4 Long term (current) use of insulin; Z79.82 Long term (current) use of aspirin
CPT/HCPCS: 80053; 83036

== ENCOUNTER → 2023-01-21 | Outpatient (CLI) | payer OTHER ==
[2023-01-21 15:28] LABS: Source, Urine Clean Catch
[2023-01-21 19:07] LABS: Appearance, Urine Hazy (Clear); Bilirubin, Urine Neg (Neg); Blood, Urine 2+ (Neg); Glucose Qualitative, Urine Neg (Neg); Ketones, Urine Neg (Neg); Leukocyte Esterase, Urine 2+ (Neg); Nitrite, Urine Neg (Neg); Protein, Urine 1+ (Neg); Urobilinogen, Urine NORM (Normal)
[2023-01-21 19:16] LABS: Color, Urine Pale Yellow (P-Yellow)
[2023-01-21 19:18] LABS: Bacteria Many /hpf; Red Blood Cells, Urine 0-2 /hpf (0-2); Squamous Epithelial Cells Few /hpf (Few); Transitional Epithelial Cells Rare /hpf (0-Rare); White Blood Cells, Urine 25-50 /hpf (0-5)
== END | disposition home or self-care (01) ==
LOC: LAB SHORT 15:26 → LAB 15:26
PROVIDERS: Family Medicine
DX: N39.0 Urinary tract infection, site not specified (principal)
CPT/HCPCS: 81001; 87077; 87086; 87186

== ENCOUNTER → 2023-03-03 | Outpatient (CLI) | payer OTHER ==
[2023-03-03 12:30] LABS: Source, Urine Clean Catch
[2023-03-03 13:46] LABS: Appearance, Urine Clear (Clear); Bilirubin, Urine Neg (Neg); Blood, Urine 2+ (Neg); Color, Urine Yellow (P-Yellow); Glucose Qualitative, Urine Neg (Neg); Ketones, Urine Neg (Neg); Leukocyte Esterase, Urine Neg (Neg); Nitrite, Urine Neg (Neg); Protein, Urine 1+ (Neg); Urobilinogen, Urine NORM (Normal)
[2023-03-03 14:09] LABS: Squamous Epithelial Cells Few /hpf (Few); White Blood Cells, Urine 0-2 /hpf (0-5)
[2023-03-03 14:10] LABS: Bacteria Mod /hpf; Mucus Light (0-Heavy)
== END | disposition home or self-care (01) ==
LOC: LAB SHORT 08:00 → LAB 08:00
PROVIDERS: Family Medicine
DX: N39.0 Urinary tract infection, site not specified (principal)
CPT/HCPCS: 81001; 87086